=== PATIENT | male | born 1970 | race Two or more races ===

== ENCOUNTER → 2017-08-12 | Outpatient (CLI) | payer MEDICAID ==
[~2017-08-12] MED LIST: GADOBUTROL 10 ML VIAL IVP ONE
== END ==
LOC: FIMAGING 19:44
DX: Z08 Encounter for follow-up examination after completed treatment for malignant neoplasm (principal); D49.2 Neoplasm of unspecified behavior of bone, soft tissue, and skin; D18.00 Hemangioma unspecified site; M51.26 Other intervertebral disc displacement, lumbar region
CPT/HCPCS: A9585